=== PATIENT | female | born 1980 | race Caucasian/White ===

== ENCOUNTER 2017-01-20 17:07 | Emergency (ER) | payer BC, OTHER ==
[2017-01-20] MEDS ORDERED: Meclizine 25 MG Tab PO ONE ×2 (17:36→18:49)
--- NOTE | 2017-01-20 17:39 | EDM.PDOC ---
ED HPI GENERAL MEDICAL PROBLEM - General Chief Complaint: Cardiovascular Problem Stated Complaint: HIGH BP Time Seen by Provider: 01/20/17 17:07 Source of Information: Reports: Patient, Family History Limitations: Reports: No Limitations - History of Present Illness INITIAL COMMENTS - FREE TEXT/NARRATIVE: 36 y.o.w.f. came to the ed with her SO due to HTN and dizziness. Pt was seen at the and sent to the ed. Her BP was 152/82, puls 77 RR 20, Temp 36.6 on arrival. No N/V/D, no C/P, pt was never told she has HNT. Pt denied trauma. Dizziness is getting worse when she is turning her head to either side. Pt denied h/o Vertigo. Onset: Today Onset Date: 01/20/17 Onset Time: 10:00 Duration: Constant, Intermittent Location: Reports: Head Quality: Reports: Other headache Pain Score (Numeric/FACES): 7 - Related Data Allergies Allergy/AdvReac Type Severity Reaction Status Date / Time No Known Allergies Allergy Verified 01/20/17 17:42 Home Meds: Home Meds Levonorgestrel-Ethin Estradiol [Falmina-28 Tablet] 1 tab PO DAILY 01/20/17 [ History] Meclizine [Antivert] 25 mg PO Q6H PRN #20 tab.chew 01/20/17 [Rx] ED ROS GENERAL - Review of Systems Review Of Systems: See Below Constitutional: Reports: No Symptoms HEENT: Reports: Vertigo, Other (h/o worst ever) Respiratory: Reports: No Symptoms Cardiovascular: Reports: No Symptoms Endocrine: Reports: No Symptoms GI/Abdominal: Reports: No Symptoms : Reports: No Symptoms Musculoskeletal: Reports: No Symptoms Skin: Reports: No Symptoms Neurological: Reports: Dizziness, Headache Psychiatric: Reports: No Symptoms Hematologic/Lymphatic: Reports: No Symptoms Immunologic: Reports: No Symptoms ED EXAM, GENERAL - Physical Exam Exam: See Below Exam Limited By: No Limitations General Appearance: Alert, WD/WN, Mild Distress Eye Exam: Bilateral Eye: Nystagmus (bilat benign) Ears: Normal External Exam Ear Exam: Bilateral Ear: Auricle Normal Nose: Normal Inspection, Normal Mucosa Throat/Mouth: Normal Inspection, Normal Lips Head: Atraumatic, Normocephalic Neck: Normal Inspection, Supple, Non-Tender, Full Range of Motion Respiratory/Chest: No Respiratory Distress, Lungs Clear, Normal Breath Sounds Cardiovascular: Normal Peripheral Pulses, Regular Rate, Rhythm, No Edema, No Gallop Peripheral Pulses: 2+: Radial (L), Radial (R) GI/Abdominal: Normal Bowel Sounds, Soft, Non-Tender (Female) Exam: Deferred Rectal (Female) Exam: Deferred Back Exam: Normal Inspection, Full Range of Motion Extremities: Normal Inspection, Normal Range of Motion, Non-Tender, No Pedal Edema Neurological: Alert, Oriented, CN II-XII Intact, Normal Cognition Psychiatric: Normal Affect, Normal Mood Skin Exam: Warm, Dry, Intact, Normal Color, No Rash Lymphatic: No Adenopathy EKG INTERPRETATION EKG Date: 01/20/17 Time: 17:20 Rhythm: NSR Rate (Beats/Min): 73 [place]: Normal P-Wave: Present QRS: Normal ST-T: Normal QT: Normal Comparison: NA - No Prior EKG Course - Vital Signs Text/Narrative:: 36 y.o.w.f. came to the ed with her SO due to HTN and dizziness. Pt was seen at the and sent to the ed. Her BP was 152/82, puls 77 RR 20, Temp 36.6 on arrival. No N/V/D, no C/P, pt was never told she has HNT. Pt denied trauma. Dizziness is getting worse when she is turning her head to either side. Pt denied h/o Vertigo. PE: Benign paroxysmal positional Vertigo, no focal weakness. Imaging: CT Head: NAD Impression: Benign paroxysmal positional Vertigo (nystagmus) HTN (needs to be determined) Tx: Antivert Reexam: Improved 50% while here in the ed. BP was 14/77 and D/C Plan: D/C with instructions. Last Recorded V/S: Last Vital Signs Temp 36.6 C 01/20/17 18:30 Pulse 78 01/20/17 17:15 Resp 18 01/20/17 18:45 BP 147/77 H 01/20/17 18:45 Pulse Ox 100 01/20/17 18:45 - Orders/Labs/Meds Orders: Active Orders 24 hr Category Date Time Status Head wo Cont [CT] Stat Exams 01/20/17 17:42 Taken EKG 12 Lead [EK] Routine Ther 01/20/17 17:20 Ordered Meds: Medications Discontinued Medications Generic Name Dose Route Start Last Admin Trade Name Leta PRN Reason Stop Dose Admin Meclizine HCl 50 mg 01/20/17 17:36 01/20/17 17:49 Antivert PO 01/20/17 17:37 50 mg ONETIME ONE Administration Departure - Departure Time of Disposition: 18:36 Disposition: Home, Self-Care 01 Condition: Good Clinical Impression: Vertigo, Tension headache Prescriptions: Meclizine [Antivert] 25 mg PO Q6H PRN #20 tab.chew PRN Reason: Dizziness Instructions: Hypertension, [id number], Dizziness Referrals: Castillo Lantigua MD [Primary Care Provider] - Forms: ED Department Discharge Additional Instructions: Please get the blood pressure checked daily in next 3 days. If stiill above 140/ 80, please follow up with your doctor for BP meds. Please take antivert as recommended. Please come back to the ed if your symptoms get worse acutely. - My Orders Last 24 Hours: My Active Orders 01/20/17 17:20 EKG 12 Lead [EK] Routine 01/20/17 17:42 Head wo Cont [CT] Stat - Assessment/Plan Last 24 Hours: My Active Orders 01/20/17 17:20 EKG 12 Lead [EK] Routine 01/20/17 17:42 Head wo Cont [CT] Stat
== END 2017-01-20 18:57 | disposition home or self-care (01) ==
LOC: FB.ED 17:07
DX: G44.209 Tension-type headache, unspecified, not intractable (principal); R42 Dizziness and giddiness
CPT/HCPCS: 70450; 99284; A9270; 93005

== ENCOUNTER 2022-02-04 13:01 | Emergency (ER) | payer BC, OTHER ==
[2022-02-04 13:45] LABS: ESTIMATED GFR 73 mL/min (>60)
== END 2022-02-04 14:10 | disposition home or self-care (01) ==
LOC: FB.ED 13:01
DX: R07.9 Chest pain, unspecified (principal); R00.2 Palpitations; Z88.0 Allergy status to penicillin; Z88.8 Allergy status to other drugs, medicaments and biological substances
CPT/HCPCS: 36415; 80053; 84443; 84484; 85025; 85379; 93005; 99285

== ENCOUNTER 2024-04-16 14:07 | Emergency (ER) | payer OTHER ==
[2024-04-16] MEDS ORDERED: Sodium Chloride 0.9% 10 ML Syringe FLUSH PRN (14:12)
[2024-04-16 14:30] LABS: BASOPHILS PERCENT AUTO 0.3 % (0.2-1.5); EOSINOPHILS ABSOLUTE AUTO 0.1 x10-3/uL (0.0-0.8); EOSINOPHILS PERCENT AUTO 1.5 % (0.6-8.1); HEMATOCRIT 38.2 % (34.2-48.2); HEMOGLOBIN 12.7 g/dL (11.4-15.5); LYMPHOCYTES ABSOLUTE AUTO 1.9 x10-3/uL (1.0-4.4); MEAN CORPUSCULAR HEMOGLOBIN 30.3 pg (23.9-33.9); MEAN CORPUSCULAR HGB CONC 33.2 g/dL (31.9-34.8); MEAN CORPUSCULAR VOLUME 91.1 fL (76.7-100.5); MEAN PLATELET VOLUME 7.8 fL (7.1-12.4); MONOCYTES ABSOLUTE AUTO 0.5 x10-3/uL (0.3-1.0); MONOCYTES PERCENT AUTO 7.4 % (4.4-15.7); NEUTROPHILS ABSOLUTE AUTO 4.7 x10-3/uL (1.5-6.3); NEUTROPHILS PERCENT AUTO 64.9 % (30.8-76.2); PLATELET COUNT,PLT 302 x10(3)uL (151-488); RED BLOOD CELL COUNT 4.19 x10(6)uL (3.60-5.20); RED CELL DISTRIBUTION WIDTH 13.2 % (12.3-16.5); WHITE BLOOD CELL COUNT,WBC 7.2 x10-3/uL (3.0-10.3)
[2024-04-16 14:36] LABS: BLOOD UREA NITROGEN,BUN 13 mg/dL (7-18); BUN/CREATININE RATIO 16.3 (9-20); CALCIUM 8.9 mg/dL (8.6-10.2); CARBON DIOXIDE,CO2 28 mmol/L (21-32); CHLORIDE,CL 104 mmol/L (100-110); CREATININE 0.8 mg/dL (0.55-1.02); ESTIMATED GFR 94 mL/min (>60); GLUCOSE RANDOM 111 mg/dL (80-116); POTASSIUM,K 3.7 mmol/L (3.5-5.3); SODIUM,NA 141 mmol/L (135-145)
[2024-04-16 14:41] LABS: A/G RATIO 1.2; ALANINE AMINOTRANSFERASE,ALT 43 U/L (12-36); ALBUMIN 3.8 g/dL (3.5-5.2); ALKALINE PHOSPHATASE 82 IU/L (56-112); ASPARTATE AMNIOTRANSFERASE,AST 21 IU/L (5-25); BILIRUBIN TOTAL 0.5 mg/dL (0.1-1.3); MAGNESIUM 1.7 mg/dL (1.8-2.5); PROTEIN TOTAL,TP 7.1 g/dL (6.0-8.0)
[2024-04-16] MEDS: Sodium Chloride 0.9% 1,000 ML IV ONE (14:55)
[2024-04-16] MEDS: Aspirin 81 MG Tab.Chew PO ONE (14:59)
[2024-04-16] MEDS: diphenhydrAMINE 50 MG/ML SDV IVPUSH ONE (15:01)
[2024-04-16] MEDS: Prochlorperazine 10 MG/2 ML SDV IVPUSH ONE (15:03)
[2024-04-16] MEDS: Iopamidol 755 Mg/ML 200 ML Bottle IV ONE (16:03)
== END 2024-04-16 17:49 | disposition home or self-care (01) ==
LOC: FB.ED 14:07
DX: E86.0 Dehydration (principal); R07.9 Chest pain, unspecified; Z79.899 Other long term (current) drug therapy; Z90.49 Acquired absence of other specified parts of digestive tract; Z90.710 Acquired absence of both cervix and uterus
CPT/HCPCS: 36415; 70496; 70498; 71275; 80053; 83735; 84484; 85025; 85379; 85651; 86140; 93005; 96361; 96374; 96375; 99285; A9270; J0780; J1200; J7030; Q9967